=== PATIENT | female | born 1970 | race Caucasian/White ===

== ENCOUNTER 2016-05-07 22:54 | Emergency (ER) | payer SELFPAY ==
[~2016-05-07] VITALS: Ht 152.4 cm; Wt 99.8 kg
[~2016-05-07 22:54] MED LIST: MOTRIN800 MG PO; NO MEDS; ZANTAC
[2016-05-07 23:09] VITALS: BP 116/71
--- NOTE | 2016-05-07 23:18 | NUR ---
PT TAKEN TO OF2
--- NOTE | 2016-05-07 23:21 | NUR ---
PT MOVED TO BED 1
--- NOTE | 2016-05-07 23:21 | NUR ---
Dr. Chu evaluating patient at bedside.
--- NOTE | 2016-05-07 23:22 | NUR ---
46/F CAME IN DUE TO FOREIGN BODY ON HER LEFT EAR 30 MINUTES AGO. PATIENT STATES PAIN OF 10/10 AT THIS TIME; VSS; PATIENT POSITIONED FOR COMFORT; HOB ELEVATED; BEDRAILS UP X2; BED DOWN. ER MD MADE AWARE OF PT STATUS.
[2016-05-08 00:15] VITALS: BP 118/75
--- NOTE | 2016-05-08 00:15 | NUR ---
Patient discharged with v/s stable BY DR. VAN. Written and verbal after care instructions given and explained BY DR. VAN. Patient verbalized understanding. Ambulatory with steady gait. All questions addressed prior to discharge BY DR. VAN. Advised to follow up with PMD BY DR. VAN. ID BAND REMOVED
== END 2016-05-08 00:15 | disposition home or self-care (01) ==
LOC: MED 22:54
DX: T16.2XXA Foreign body in left ear, initial encounter (principal); X58.XXXA Exposure to other specified factors, initial encounter; Y93.89 Activity, other specified; Y92.89 Other specified places as the place of occurrence of the external cause; Y99.8 Other external cause status

== ENCOUNTER 2018-12-22 09:51 | Emergency (ER) | payer MEDICAID ==
[~2018-12-22] VITALS: Ht 147.3 cm; Wt 100.2 kg
[~2018-12-22 09:51] MED LIST changes: +IBUP-974 PO; -MOTRIN800 MG PO; -NO MEDS; -ZANTAC
[2018-12-22 10:00] VITALS: BP 138/76
--- NOTE | 2018-12-22 10:01 | NUR ---
PT TAKEN TO BED 11.
--- NOTE | 2018-12-22 10:17 | NUR ---
c/o persistant frontal lobe headache radiating occipital region "months" with dizziness today denies recent injury but admits fell from chair while standing attempting to reach overhead "months ago". full clear speech, no facial asymmetry, ambulatory with steady gait, no drift noted, equal bue strengths. no nystagmus noted
[2018-12-22] MEDS ORDERED: KETOROLAC 60 MG/2 ML VIAL IM ONE (10:25)
[2018-12-22 10:57] VITALS: BP 125/50
--- NOTE | 2018-12-22 10:57 | NUR ---
Patient discharged with v/s stable. Written and verbal after care instructions given and explained. Patient alert, oriented and verbalized understanding of instructions. Ambulatory with steady gait. All questions addressed prior to discharge. ID band removed. Patient advised to follow up with PMD. Rx of NORCO, MECLIZINE, ZOFRAN, MOTRIN, CIPRO given. Patient educated on indication of medication including possible reaction and side effects. Opportunity to ask questions provided and answered.
== END 2018-12-22 10:57 | disposition home or self-care (01) ==
LOC: MED 09:51
DX: R51 Headache (principal); N39.0 Urinary tract infection, site not specified; E11.9 Type 2 diabetes mellitus without complications; Z98.890 Other specified postprocedural states; Z79.1 Long term (current) use of non-steroidal anti-inflammatories (NSAID)
CPT/HCPCS: 81002; 81025; 82948; 96372; 99283; J1885